=== PATIENT | female | born 1995 | race Caucasian/White ===

== ENCOUNTER 2020-05-05 12:37 | Emergency (ER) | payer BC, SELFPAY ==
[~2020-05-05] VITALS: Ht 160 cm; Wt 56.7 kg
[2020-05-05 12:47] VITALS: BP 122/69; Ht 160 cm; Wt 56.7 kg
== END 2020-05-05 13:24 | disposition left against medical advice (07) ==
LOC: ED 12:37
DX: Z53.21 Procedure and treatment not carried out due to patient leaving prior to being seen by health care provider (principal)